=== PATIENT | male | born 1975 | race Caucasian/White ===

== ENCOUNTER → 2016-11-11 | Outpatient (CLI) | payer BC ==
[~2016-11-11] MED LIST: CLR10 PO; TRAM-10 PO
--- NOTE | 2016-11-11 16:08 | DIAGNOSTIC IMAGING REPORT ---
LEFT LOWER EXT JOINT WITHOUT CLINICAL HISTORY: 41 years-old Male presenting with LEFT KNEE PAIN, clinical concern for meniscal tear. TECHNIQUE: Multisequence, multiplanar MR imaging of the left knee was performed without the use of intravenous contrast. IV contrast: None. COMPARISON: None. FINDINGS: Localizer images: Unremarkable. Bony edema noted along the posterior weightbearing surface of the medial femoral condyle. Otherwise bone marrow signal intensity normal. Articular cartilage preserved, including along the posterior weightbearing surface of the medial femoral condyle. Medial and lateral menisci normal. Anterior posterior cruciate ligaments intact. Medial collateral ligament intact. The lateral collateral ligament complex demonstrates increased signal intensity and thickening of the femoral origin of the fibular collateral ligament indicating tendinosis. There is questionable disruption along the medial aspect of the proximal fibers of the fibular collateral ligament raising concern for Limited partial tear. Increased signal intensity of the popliteal tendon at the insertion. Remaining components of the lateral collateral ligament complex including the biceps femoris and iliotibial band are normal. Trace knee joint effusion. No popliteal cysts. Cystic change adjacent to the origin of the medial head of the gastrocnemius, most likely ganglion cysts. Subjacent synovitis versus loose bodies in the joint space immediately superior to the posterior articular surface of the medial femoral condyle. Normal muscle bulk and muscle signal intensity. IMPRESSION: 1. No evidence of a meniscal tear. 2. Bony edema along the medial femoral condyle with overlying abnormality in the joint space extending immediately superior to the posterior articular surface of the medial femoral condyle. This is immediately subjacent to the medial head of the gastrocnemius. This may represent synovitis or loose bodies in the joint. Overlying ganglion cysts. 3. Tendinosis versus limited partial tear of the proximal fibular collateral ligament. 4. Tendinosis of the popliteal tendon insertion. Electronically signed by: Augustus Monae M.D. 11/11/2016 4:06 PM Dictated Date/Time: 11/11/2016 3:57 PM
== END | disposition home or self-care (01) ==
LOC: C.MRIBC 14:54
PROVIDERS: ATTEND Orthopaedic Surgery
DX: M25.562 Pain in left knee (principal); M76.892 Other specified enthesopathies of left lower limb, excluding foot

== ENCOUNTER → 2016-12-01 | Day surgery (SDC) | payer BC ==
[2016-11-20 09:13] VITALS: Ht 179.6 cm; Wt 62.3 kg
[~2016-12-01] VITALS: Ht 179.6 cm; Wt 62.3 kg
[~2016-12-01] MED LIST changes: +ATROPINE SULFATE 0.1 MG/ML 5ML SYR IV PRN; +BUPIVACAINE 0.5 % 5 MG/1 ML MPF 30ML VIAL ONE; +CEFAZOLIN 1000MG/55 ML D5W IV SCH; -CLR10 PO; +DEXAMETHASONE SOD INJ 4 MG/ML VIAL ONE; +EpHEDrine SULFATE INJ 50 MG/ML AMP IV PRN; +FENTANYL CITRATE INJ 50 MCG/1 ML 2 ML VIAL IV PRN; +FENTANYL CITRATE INJ 50 MCG/1 ML 2 ML VIAL ONE; +LACTATED RINGER'S 1000ML 1,000 ML IV SCH; +LIDOCAINE HCL 2% 2 ML VIAL (20MG/ML) ONE; +MIDAZOLAM HCL 1 MG/ML 2ML VIAL ONE; +ONDANSETRON INJ 2 MG/ML 2 ML VIAL IV PRN; +ONDANSETRON INJ 2 MG/ML 2 ML VIAL ONE; +OXYCODONE/ACETAMINOPHEN 5-325 TAB PO PRN; +PROPOFOL IV EMULSION 10 MG/ML 20 ML VIAL IV ONE; +SODIUM CHLORIDE 0.9% 1000ML 1,000 ML IV SCH
--- NOTE | 2016-12-01 09:23 | History & Physical Bridge - SC ---
H&P Re-Evaluation Bridge Note: I have examined the patient, reviewed the History & Physical and in the interval since the performance of the History & Physical I have noted the following changes of clinical significance: No changes noted
--- NOTE | 2016-12-01 10:58 | [facility] Post Operative Brief Note ---
Immediate Operative Summary Operative Date Dec 01, 2016. Pre-Operative Diagnosis Retained hardware, left clavicle Post-Operative Diagnosis same as preop Procedure(s) Performed Left Clavicle Hardware Removal Surgeon Dr. [facility] Admitting Clerk Surgeon(s) JULIANA Clayton Estimated Blood Loss 5ml Findings ABOVE Specimens Removed hardware being sent with patient, request to release explants form signed by patient, and Dr. Martinez approved. Explants decontaminated and sterilized. Anesthesia LMA Complication(s) None Disposition Recovery Room / PACU
--- NOTE | 2016-12-01 11:07 | Discharge Instructions-SurgCtr ---
Discharge Instructions Date of Service Dec 01, 2016. Visit Reason for Visit: Retained Hardware Left Clavicle S/P Fracture Discharge Discharge Diagnosis / Problem: SAME ABOVE Discharge Goals Goal(s): Decrease discomfort, Improve function Activity Recommendations Activity Limitations: as noted below Lifting Limitations: until after follow-up appointment Exercise/Sports Limitations: until after follow-up appointment Shower/Bathe: keep incision dry Anesthesia . Post Anesthesia Instructions: If you have had General Anesthesia or IV Sedation: * Do not drive today. * Resume driving when surgeon permits. * Do not make important decisions or sign legal documents today. * Call surgeon for: 1. Temperature elevations greater than 101 degrees F. 2. Uncontrollable pain. 3. Excessive bleeding. 4. Persistent nausea and vomiting. 5. Medication intolerance (nausea, vomiting or rash). * For nausea and vomiting use only clear liquids such as: tea, soda, bouillon until nausea subsides, then gradually increase diet as tolerated. * If you have any concerns or questions, call your surgeon's office. If physician is unavailable and it is an emergency, call 911 or go to the nearest emergency room. . Instructions / Follow-Up Instructions / Follow-Up MEDICATIONS: * Resume previous medications unless instructed otherwise by your surgeon. * Always take pain medication on a full stomach or with food to avoid upset stomach. * Do not drink alcohol or drive while taking narcotics. * Ibuprofen or Tylenol may be taken if narcotic not needed. SPECIAL CARE INSTRUCTIONS: __ None _X_ Keep extremity elevated and iced x 48 hours; apply ice 20-30 minutes 8-10 times/day. May remove at night. _X_ Sling __24 hrs/day __ Remove at night __ Shoulder Immobilizer __ 24 hrs/day __ Remove at night _X_ Dressing __ Maintain until seen in office, may shower with plastic over site _X_ Remove dressings in 24-48 hours and then may shower _X_ Cover incisions with band-aids after showering __ Do not remove steri-strips USE ARM SLING FOR COMFORT RE DRESS INCISION AFTER 2-3 DAYS Call physician if chills or temperature rises above 102 degrees or pain unrelieved by prescribed pain medications at . . Diet Recommendations Home Diet: resume previous diet Procedures Procedures Performed: Left Clavicle Hardware Removal Pending Studies Studies pending at discharge: no Medical Emergencies . Who to Call and When: Medical Emergencies: If at any time you feel your situation is an emergency, please call 911 immediately. . Non-Emergent Contact Non-Emergency issues call your: Primary Care Provider . . "Provider Documentation" section prepared by Balaji Garland. .
--- NOTE | 2016-12-01 12:08 | Anesthesia Progress Nt - [facility] ---
Anesthesia Post Op Note Date & Time Dec 01, 2016 at 12:08 Vital Signs Pain Intensity: 0 Vital Signs Past 12 Hours Date Time Temp Pulse Resp B/P (MAP) Pulse Ox O2 Delivery O2 Flow Rate FiO2 12/01/16 12:05 36.4 53 16 103/74 99 Room Air 12/01/16 11:57 54 16 100 12/01/16 11:57 54 16 12/01/16 11:56 111/73 12/01/16 11:52 61 20 12/01/16 11:52 59 20 100 12/01/16 11:51 105/76 12/01/16 11:47 48 13 12/01/16 11:47 47 13 100 12/01/16 11:46 113/75 12/01/16 11:42 54 4 12/01/16 11:42 53 4 100 12/01/16 11:41 104/72 12/01/16 11:37 61 7 12/01/16 11:37 60 7 100 12/01/16 11:36 100/63 12/01/16 11:32 52 14 99 12/01/16 11:32 51 14 12/01/16 11:31 98/59 12/01/16 11:27 52 12 12/01/16 11:27 52 12 99 12/01/16 11:26 97/61 12/01/16 11:22 53 15 12/01/16 11:22 51 15 99 12/01/16 11:21 96/62 12/01/16 11:18 51 14 12/01/16 11:18 52 14 98 12/01/16 11:16 99/66 12/01/16 11:13 55 16 12/01/16 11:13 55 16 99 12/01/16 11:11 91/66 12/01/16 11:08 36.5 48 14 96/65 98 Mask 6 12/01/16 11:08 96/65 12/01/16 08:43 36.6 77 16 110/76 (87) 96 Room Air Notes Mental Status: alert / awake / arousable, participated in evaluation Pt Amnestic to Procedure: Yes Nausea / Vomiting: adequately controlled Pain: adequately controlled Airway Patency, RR, SpO2: stable & adequate BP & HR: stable & adequate Hydration State: stable & adequate Anesthetic Complications: no major complications apparent
[2016-12-01 12:14] VITALS: TEMP 36.4
[2016-12-01 12:49] VITALS: BP 118/76; PULSE 66; O2SAT 100
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
== END | disposition home or self-care (01) ==
LOC: X.SURG 08:21
PROVIDERS: ATTEND Orthopaedic Surgery
DX: T84.398A Other mechanical complication of other bone devices, implants and grafts, initial encounter (principal); Y83.1 Surgical operation with implant of artificial internal device as the cause of abnormal reaction of the patient, or of later complication, without mention of misadventure at the time of the procedure